=== PATIENT | female | born 1990 | race Caucasian/White ===

== ENCOUNTER 2016-09-07 11:16 | Outpatient (CLI) | payer MEDICAID ==
[~2016-09-07] VITALS: Ht 152.4 cm; Wt 63.2 kg
[2016-09-07 11:35] VITALS: BP 113/68; PULSE 58; TEMP 98.9
[2016-09-07 11:37] VITALS: BP 113/68; PULSE 58; TEMP 98.9
[2016-09-07] MEDS ORDERED: PRENATAL (11:45)
[2016-09-07] MEDS ORDERED: IRON325 MG PO (11:46)
[2016-09-07 12:29] VITALS: BP 114/70; PULSE 60
== END 2016-09-07 12:33 | disposition home or self-care (01) ==
LOC: LDRO 11:16
DX: O47.1 False labor at or after 37 completed weeks of gestation (principal); Z3A.39 39 weeks gestation of pregnancy; Z87.891 Personal history of nicotine dependence

== ENCOUNTER 2016-09-07 17:18 | Inpatient (IN) | payer MEDICAID ==
[2016-09-07] VITALS (11 sets, daily range): BP systolic 104–129; BP diastolic 58–85; PULSE 47–68; TEMP 97.4–98.4
[~2016-09-07] VITALS: Ht 152.4 cm; Wt 63.2 kg
[~2016-09-07 17:18] MED LIST: IRON325 MG PO; PRENATAL
[2016-09-07 20:05] LABS: AMPHETAMINE URINE NEGATIVE; BARBITURATES URINE NEGATIVE; BENZODIAZEPINES URINE NEGATIVE; BUPRENORPHINE URINE NEGATIVE; METHADONE URINE NEGATIVE; OPIATES URINE NEGATIVE; OXYCODONE URINE NEGATIVE; PHENCYCLIDINE URINE NEGATIVE; PROPOXYPHENE URINE NEGATIVE; THC CANNABINOIDS URINE NEGATIVE
[2016-09-07 20:15] LABS: BASO % 0.2 % (0.0-2.0); EOS # 0.1 (0.0-0.7); EOS % 1.1 % (0-4.0); GRAN # 6.6 (1.4-6.5); GRAN % 69.7 % (42.2-75.2); HEMATOCRIT 35.9 % (37.0-47.0); HEMOGLOBIN 12.6 g/dl (12.5-16.0); LYMPH % 20.7 % (20.0-51.0); MEAN CELL VOLUME 93 fl (80.0-100.0); MEAN CORPUSCULAR HEMOGLOBIN 33 pg (27.0-31.0); MEAN CORPUSCULAR HGB CONC 35 g/dl (33.0-37.0); MEAN PLATELET VOLUME 10.7 fl (7.4-10.4); MONO # 0.7 (0.1-0.6); MONO % 7.8 % (1.7-9.3); PLATELET COUNT 207 K/mm3 (130-400); RED BLOOD COUNT 3.87 M/mm3 (4.10-5.30); WHITE BLOOD COUNT 9.5 K/mm3 (4.8-10.8)
[2016-09-08 00:35] VITALS: BP 93/46; PULSE 68; TEMP 98.1
[2016-09-08 04:30] VITALS: BP 112/70; PULSE 57; TEMP 97.5
[2016-09-08 08:59] VITALS: BP 102/68; PULSE 56; TEMP 98
[2016-09-08 20:00] VITALS: BP 108/67; PULSE 71; TEMP 97.9
[2016-09-09 07:50] VITALS: BP 106/68; PULSE 62; TEMP 98.1
[2016-09-09] MEDS ORDERED: IBU800 M1 PO (09:34)
== END 2016-09-09 13:40 | disposition home or self-care (01) | DRG 775 ==
LOC: LDRO 17:18 → LDR 17:37 → OB 22:15
PROVIDERS: Student in an Organized Health Care Education/Training Program
PROC: 10E0XZZ Delivery of Products of Conception, External Approach (ICD-10-PCS; principal; 2016-09-07)
DX: O77.0 Labor and delivery complicated by meconium in amniotic fluid (principal); O99.02 Anemia complicating childbirth; D64.9 Anemia, unspecified; O09.73 Supervision of high risk pregnancy due to social problems, third trimester; Z3A.39 39 weeks gestation of pregnancy; Z37.0 Single live birth
CPT/HCPCS: J2590; J7120

== ENCOUNTER 2017-04-10 12:55 | Emergency (ER) | payer MEDICAID ==
[~2017-04-10] VITALS: Ht 152.4 cm; Wt 53.2 kg
[~2017-04-10 12:55] MED LIST changes: +IBU800 M1 PO
[2017-04-10 12:59] VITALS: BP 116/73; PULSE 66; TEMP 98.8
== END 2017-04-10 13:24 | disposition home or self-care (01) ==
LOC: COL.ER 12:55
DX: S05.92XA Unspecified injury of left eye and orbit, initial encounter (principal); Z53.21 Procedure and treatment not carried out due to patient leaving prior to being seen by health care provider

== ENCOUNTER 2018-03-01 14:26 | Emergency (ER) | payer MEDICAID ==
[~2018-03-01] VITALS: Ht 172.7 cm; Wt 48.2 kg
[2018-03-01 14:33] VITALS: BP 115/78; TEMP 98.9
[2018-03-01 15:15] LABS: BASO % 0.3 % (0.0-2.0); EOS # 0.2 (0.0-0.7); EOS % 2.8 % (0-4.0); GRAN # 3.9 (1.4-6.5); GRAN % 64.1 % (42.2-75.2); HEMATOCRIT 38.6 % (37.0-47.0); HEMOGLOBIN 13.5 g/dl (12.5-16.0); LYMPH # 1.5 (1.2-3.4); MEAN CELL VOLUME 92 fl (80.0-100.0); MEAN CORPUSCULAR HEMOGLOBIN 32 pg (27.0-31.0); MEAN CORPUSCULAR HGB CONC 35 g/dl (33.0-37.0); MONO # 0.5 (0.1-0.6); MONO % 7.6 % (1.7-9.3); PLATELET COUNT 276 K/mm3 (130-400); RED BLOOD COUNT 4.22 M/mm3 (4.10-5.30); REDCELL DISTRIBUTION WIDTH-CV 11.8 % (11.5-14.5)
[2018-03-01 16:28] VITALS: PULSE 58
== END 2018-03-01 16:29 | disposition home or self-care (01) ==
LOC: COL.ER 14:26
PROVIDERS: Emergency Medicine
DX: O03.9 Complete or unspecified spontaneous abortion without complication (principal)